=== PATIENT | female | born 1980 | race Two or more races ===

== ENCOUNTER 2017-06-13 16:24 | Observation (INO) | payer MEDICAID ==
[~2017-06-13] VITALS: Ht 162.6 cm; Wt 74.8 kg
[2017-06-13] MEDS ORDERED: PREN-88 PO ×2 (17:40→18:22)
[2017-06-13] MEDS ORDERED: ASPI-1159 PO (18:22)
[2017-06-13] MEDS ORDERED: FOLI-43 PO (18:22)
== END 2017-06-13 19:17 | disposition home or self-care (01) ==
LOC: L&D 16:24
PROVIDERS: ADMIT Obstetrics & Gynecology; ATTEND Obstetrics & Gynecology
DX: O26.893 Other specified pregnancy related conditions, third trimester (principal); R10.9 Unspecified abdominal pain; O24.913 Unspecified diabetes mellitus in pregnancy, third trimester; Z79.4 Long term (current) use of insulin; Z3A.33 33 weeks gestation of pregnancy
CPT/HCPCS: 76805; 76818; 99281; G0378